=== PATIENT | female | born 1965 | race Two or more races ===

== ENCOUNTER 2017-05-26 21:32 | Emergency (ER) | payer SELFPAY ==
[2017-05-26 22:03] VITALS: BP 175/84
[2017-05-27] MEDS ORDERED: KETOROLAC TROMETH 60MG/2ML VIAL IM ONE ×2 (00:30)
== END 2017-05-27 00:48 | disposition home or self-care (01) ==
LOC: ER 21:32
DX: S80.02XA Contusion of left knee, initial encounter (principal); I10 Essential (primary) hypertension; W19.XXXA Unspecified fall, initial encounter; Y93.89 Activity, other specified; Y99.8 Other external cause status; Y92.89 Other specified places as the place of occurrence of the external cause
CPT/HCPCS: 73562; 96372; 99284; J1885

== ENCOUNTER 2018-07-21 07:10 | Emergency (ER) | payer BC ==
[~2018-07-21] VITALS: Ht 157.5 cm; Wt 93.4 kg
[2018-07-21 07:43] VITALS: BP 149/81
== END 2018-07-21 08:11 | disposition home or self-care (01) ==
LOC: ER 07:10
DX: J20.9 Acute bronchitis, unspecified (principal); I10 Essential (primary) hypertension
CPT/HCPCS: 71046

== ENCOUNTER 2018-07-28 09:40 | Emergency (ER) | payer BC ==
[~2018-07-28] VITALS: Ht 157.5 cm; Wt 117.9 kg
[2018-07-28 10:14] VITALS: BP 155/83
== END 2018-07-28 11:18 | disposition home or self-care (01) ==
LOC: ER 09:40
DX: J20.9 Acute bronchitis, unspecified (principal); I10 Essential (primary) hypertension
CPT/HCPCS: 71046